=== PATIENT | male | born 1960 | race Caucasian/White ===

== ENCOUNTER 2019-01-17 10:37 | Emergency (ER) | payer OTHER ==
[~2019-01-17] VITALS: Ht 167.6 cm; Wt 72.6 kg
--- NOTE | 2019-01-17 10:37 | NUR ---
DR. THOMAS AT BEDSIDE EVALUATING PATIENT.
--- NOTE | 2019-01-17 10:37 | NUR ---
PATIENT BIBA TO BED 3 AT THIS TIME.
[2019-01-17] MEDS ORDERED: ALBUTEROL 0.083% 2.5 MG/3 ML NEBU INH ONE (10:45)
[2019-01-17] MEDS ORDERED: methylPREDNISolone SS 125 MG in WATER STERILE 2 ML IV ONE (10:45)
--- NOTE | 2019-01-17 10:51 | NUR ---
LAB AT BEDSIDE
--- NOTE | 2019-01-17 10:51 | NUR ---
[facility] EMT AT BEDSIDE FOR EKG
[2019-01-17 10:52] VITALS: BP 180/100
--- NOTE | 2019-01-17 10:52 | NUR ---
RT AT BEDSIDE
--- NOTE | 2019-01-17 11:03 | NUR ---
XRAY AT BEDSIDE
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
[2019-01-17 11:11] LABS: BASOPHILS % (AUTO) 0.5 % (0.0-2.0); EOSINOPHILS # (AUTO) 1.1 K/uL (0-0.4); HEMATOCRIT 37.9 % (36-52); HEMOGLOBIN 12.3 g/dL (12.0-18.0); LYMPHOCYTES # (AUTO) 3.2 K/uL (2.0-11.5); LYMPHOCYTES % (AUTO) 31.9 % (20.5-51.1); MEAN CORPUSCULAR HEMOGLOBIN 27 pg (27-31); MEAN CORPUSCULAR HGB CONC 33 g/dL (33-37); MEAN CORPUSCULAR VOLUME 81.8 fL (80-94); MONOCYTES # (AUTO) 0.8 K/uL (0.8-1.0); MONOCYTES % (AUTO) 7.5 % (1.7-9.3); NEUTROPHILS % (AUTO) 49.1 % (42.2-75.2); PLATELET COUNT (AUTO) 248 K/uL (140-450); RED BLOOD CELL COUNT(AUTO) 4.64 MIL/uL (4.20-6.10); RED CELL DISTRIBUTION WIDTH 15.2 % (11.6-13.7); WHITE BLOOD COUNT (AUTO) 10.2 K/uL (4.8-10.8)
[2019-01-17 11:32] LABS: ANION GAP 16.5 (8-16); CREATININE 1.4 mg/dL (0.7-1.3); POTASSIUM 4.5 mmol/L (3.5-5.1)
[2019-01-17 11:38] LABS: ALBUMIN 3.7 g/dL (3.4-5.0); TOTAL BILIRUBIN 0.3 mg/dL (0.0-1.0)
[2019-01-17 11:45] LABS: CREATINE KINASE MB 1.9 ng/mL (0-3.6)
[2019-01-17] MEDS ORDERED: BACITRACIN OINT 500 UNITS/GM PKT TP ONE (11:55)
--- NOTE | 2019-01-17 11:57 | NUR ---
ASKED PHARMACY TO BRING BACITRACIN- OUT OF STOCK IN [facility]. PHARMACY TO BRING TO UNIT.
[2019-01-17] MEDS ORDERED: NEOMYCIN/POLYMYXIN/BACITRACIN 0.9 GM/1 PKT TP ONE ×2 (12:10→12:12)
--- NOTE | 2019-01-17 12:11 | NUR ---
. Written and verbal after care instructions given and explained. Patient alert, oriented and verbalized understanding of instructions. Ambulatory with steady gait. All questions addressed prior to discharge. ID band removed. Patient advised to follow up with PMD. Rx of ALBUTEROL AND PRENISONE given. Patient educated on indication of medication including possible reaction and side effects. Opportunity to ask questions provided and answered. PATIENT MEDICALLY CLEARED AND RELEASED IN CUSTODY IN STABLE CONDITION. ORIGINAL PRE-BOOK FORM GIVEN TO OFFICER. VSS. NO PAIN.
[2019-01-17 12:14] VITALS: BP 172/98
== END 2019-01-17 12:11 ==
LOC: MED 10:37
DX: S00.81XA Abrasion of other part of head, initial encounter (principal); J45.901 Unspecified asthma with (acute) exacerbation; Z00.01 Encounter for general adult medical examination with abnormal findings; Z86.73 Personal history of transient ischemic attack (TIA), and cerebral infarction without residual deficits; Y04.0XXA Assault by unarmed brawl or fight, initial encounter; Y93.89 Activity, other specified; Y92.89 Other specified places as the place of occurrence of the external cause; Y99.8 Other external cause status
CPT/HCPCS: 36415; 71045; 80053; 82550; 82553; 83690; 84484; 85025; 94640; 96374; 99284; J2930; J7613